=== PATIENT | female | born 1985 | race African-American/Black ===

== ENCOUNTER 2018-10-15 00:41 | Emergency (ER) | payer MEDICAID ==
[~2018-10-15] VITALS: Ht 167.6 cm; Wt 87.0 kg
[2018-10-15 01:19] LABS: CLARITY URINE CLEAR (CLEAR); COLOR URINE YELLOW (YELLOW); KETONES URINE NEGATIVE (NEGATIVE); LEUKOCYTE ESTERASE URINE NEGATIVE (NEGATIVE); NITRITE URINE NEGATIVE (NEGATIVE); OCCULT BLOOD URINE 2+ (NEGATIVE); PROTEIN URINE NEGATIVE (NEGATIVE); SPECIFIC GRAVITY URINE 1.025 (1.005-1.030)
[2018-10-15] MEDS ORDERED: KETOROLAC 60MG/2ML VIAL IM ONE (02:30)
[2018-10-15 02:56] LABS: HEMATOCRIT 35.7 % (36.0-48.0); HEMOGLOBIN 11.6 g/dL (12.0-16.0); MEAN CORPUSCULAR HEMOGLOBIN 26.2 pg (28.0-32.0); MEAN CORPUSCULAR VOLUME 81.1 fL (81.0-99.0); PLATELET 263 x1000/uL (130-400); RED CELL DISTRIBUTION WIDTH 16.3 % (11.6-14.6)
[2018-10-15 03:46] VITALS: BP 98/53
== END 2018-10-15 03:50 | disposition home or self-care (01) ==
LOC: ER 01:46
DX: D25.9 Leiomyoma of uterus, unspecified (principal); F17.200 Nicotine dependence, unspecified, uncomplicated; F12.10 Cannabis abuse, uncomplicated
CPT/HCPCS: 36415; 81003; 81025; 85027; 96372; 99283; J1885; Z7610

== ENCOUNTER 2018-11-18 18:09 | Emergency (ER) | payer MEDICAID ==
[~2018-11-18] VITALS: Ht 167.6 cm; Wt 91.0 kg
[2018-11-18] MEDS ORDERED: SODIUM CHLORIDE 0.9% 500 ML IV ONE (19:00)
[2018-11-18] MEDS ORDERED: KETOROLAC 30MG/ML VIAL IV ONE (19:00)
[2018-11-18 19:16] LABS: CLARITY URINE CLEAR (CLEAR); COLOR URINE YELLOW (YELLOW); KETONES URINE NEGATIVE (NEGATIVE); LEUKOCYTE ESTERASE URINE NEGATIVE (NEGATIVE); NITRITE URINE NEGATIVE (NEGATIVE); OCCULT BLOOD URINE 1+ (NEGATIVE); PROTEIN URINE NEGATIVE (NEGATIVE); SPECIFIC GRAVITY URINE 1.017 (1.005-1.030); UROBILINOGEN URINE 0.2 E.U./dL (0.2-1.0)
[2018-11-18 19:38] LABS: BASOPHILS % 1.3 % (0.0-2.0); EOSINOPHILS % 9.4 % (0.0-5.0); HEMATOCRIT. 36.4 % (36.0-48.0); HEMOGLOBIN. 11.7 g/dL (12.0-16.0); LYMPHOCYTES % 29.8 % (20.0-50.0); MEAN CORPUSCULAR HEMOGLOBIN 26.6 pg (28.0-32.0); MEAN PLATELET VOLUME 8.7 fl (7.4-10.4); MONOCYTES % 9.1 % (2.0-8.0); NEUTROPHILS % 50.4 % (40.0-76.0); PLATELET 324 x1000/uL (130-400); RED BLOOD CELL COUNT 4.39 mill/uL (4.2-5.4); RED CELL DISTRIBUTION WIDTH 15.4 % (11.6-14.6)
[2018-11-18 19:43] LABS: CHLORIDE 107 mEq/L (98-107)
[2018-11-18 19:53] LABS: B-HCG QUANTITATIVE < 1 mIU/mL (<3)
[2018-11-18 21:15] VITALS: BP 125/68
== END 2018-11-18 21:55 | disposition home or self-care (01) ==
LOC: ER 18:09
DX: D25.9 Leiomyoma of uterus, unspecified (principal); N39.0 Urinary tract infection, site not specified; F12.10 Cannabis abuse, uncomplicated; D64.9 Anemia, unspecified
CPT/HCPCS: 36415; 76830; 76856; 80053; 81003; 81025; 84702; 85025; 86850; 86900; 86901; 96374; 99284; J1885; J7040; Z7610

== ENCOUNTER 2019-01-31 16:15 | Emergency (ER) | payer MEDICAID ==
[~2019-01-31] VITALS: Ht 167.6 cm; Wt 100.0 kg
[2019-01-31 17:20] LABS: CLARITY URINE CLEAR (CLEAR); COLOR URINE YELLOW (YELLOW); KETONES URINE NEGATIVE (NEGATIVE); LEUKOCYTE ESTERASE URINE NEGATIVE (NEGATIVE); NITRITE URINE NEGATIVE (NEGATIVE); OCCULT BLOOD URINE NEGATIVE (NEGATIVE); PROTEIN URINE NEGATIVE (NEGATIVE); SPECIFIC GRAVITY URINE 1.015 (1.005-1.030); UROBILINOGEN URINE 0.2 E.U./dL (0.2-1.0)
[2019-01-31] MEDS ORDERED: MORPHINE SULFATE 4 MG/ML CPJ (NOT FOR IM USE) IV STA (19:19)
[2019-01-31] MEDS ORDERED: ONDANSETRON HCL 4MG/2ML INJ IV STA (19:19)
[2019-01-31] MEDS ORDERED: SODIUM CHLORIDE 0.9% 1,000 ML IV ONE (19:19)
[2019-01-31 20:06] LABS: BASOPHILS % 1.5 % (0.0-2.0); EOSINOPHILS % 3.8 % (0.0-5.0); HEMATOCRIT. 26.6 % (36.0-48.0); HEMOGLOBIN. 8.4 g/dL (12.0-16.0); LYMPHOCYTES % 20.4 % (20.0-50.0); MEAN CORPUSCULAR HEMOGLOBIN 24.3 pg (28.0-32.0); MEAN CORPUSCULAR VOLUME 76.7 fL (81.0-99.0); MONOCYTES % 9.8 % (2.0-8.0); NEUTROPHILS % 64.5 % (40.0-76.0); PLATELET 620 x1000/uL (130-400); RED BLOOD CELL COUNT 3.47 mill/uL (4.2-5.4); RED CELL DISTRIBUTION WIDTH 16.9 % (11.6-14.6)
[2019-01-31 20:07] LABS: CHLORIDE 104 mEq/L (98-107)
[2019-01-31 20:08] LABS: PROTHROMBIN TIME 10.2 sec (9.6-11.0)
[2019-01-31] MEDS ORDERED: IOHEXOL-300 100 ML BOTTLE ONE (21:04)
[2019-01-31 23:10] VITALS: BP 118/69
== END 2019-01-31 23:06 | disposition home or self-care (01) ==
LOC: ER 16:15
DX: N99.821 Postprocedural hemorrhage of a genitourinary system organ or structure following other procedure (principal); D64.9 Anemia, unspecified; Z98.890 Other specified postprocedural states
CPT/HCPCS: 36415; 74177; 80053; 81003; 81025; 83605; 85025; 85610; 86850; 86900; 86901; 96374; 96375; 99284; J2270; J2405; J7030; Q9967; Z7610

== ENCOUNTER 2020-05-18 08:13 | Emergency (ER) | payer MEDICAID ==
[~2020-05-18] VITALS: Ht 170.2 cm; Wt 100.0 kg
[2020-05-18] MEDS ORDERED: ONDANSETRON HCL 4MG/2ML INJ IV STA (09:28)
[2020-05-18] MEDS ORDERED: DIATR MEGLU/DIATRIZOATE SOLN 30ML PO ONE (09:30)
[2020-05-18] MEDS ORDERED: SODIUM CHLORIDE 0.9% 1,000 ML IV ONE (09:30)
[2020-05-18] MEDS ORDERED: DIATR MEGLU/DIATRIZOATE SOLN 30ML ONE (10:27)
[2020-05-18 10:35] LABS: BASOPHILS % 1.1 % (0.0-2.0); EOSINOPHILS % 2.4 % (0.0-5.0); HEMATOCRIT. 44.8 % (36.0-48.0); HEMOGLOBIN. 15.2 g/dL (12.0-16.0); LYMPHOCYTES % 18.6 % (20.0-50.0); MEAN CORPUSCULAR HEMOGLOBIN 27.7 pg (28.0-32.0); MEAN CORPUSCULAR VOLUME 81.9 fL (81.0-99.0); MEAN PLATELET VOLUME 9.5 fl (7.4-10.4); MONOCYTES % 8.7 % (2.0-8.0); NEUTROPHILS % 69.2 % (40.0-76.0); PLATELET 340 x1000/uL (130-400); RED BLOOD CELL COUNT 5.47 mill/uL (4.2-5.4); RED CELL DISTRIBUTION WIDTH 13.8 % (11.6-14.6)
[2020-05-18 10:43] LABS: INR 1.1; PROTHROMBIN TIME 11.7 sec (9.6-11.0)
[2020-05-18 10:51] LABS: CHLORIDE 104 mEq/L (98-107)
[2020-05-18 10:51] LABS: CLARITY URINE CLOUDY (CLEAR); COLOR URINE DARK YELLOW (YELLOW); KETONES URINE 2+ (NEGATIVE); LEUKOCYTE ESTERASE URINE NEGATIVE (NEGATIVE); NITRITE URINE NEGATIVE (NEGATIVE); OCCULT BLOOD URINE NEGATIVE (NEGATIVE); PH URINE 5.5 (4.5-8.0); PROTEIN URINE 2+ (NEGATIVE); SPECIFIC GRAVITY URINE 1.037 (1.005-1.030)
[2020-05-18 10:58] LABS: HCG SCREEN NEGATIVE
[2020-05-18 11:14] LABS: *AMPHETAMINES SCREEN URINE NEGATIVE (NEGATIVE); *BARBITURATES SCREEN URINE NEGATIVE (NEGATIVE); *BENZODIAZEPINES SCREEN URINE NEGATIVE (NEGATIVE); *COCAINE SCREEN URINE NEGATIVE (NEGATIVE); METHADONE URINE SCREEN NEGATIVE (NEGATIVE); PHENCYCLIDINE URINE SCREEN NEGATIVE (NEGATIVE)
[2020-05-18 11:16] LABS: CANNABINOID URINE SCREEN PRESUMTIVE POSITIVE (NEGATIVE); OPIATES URINE SCREEN PRESUMTIVE POSITIVE (NEGATIVE)
[2020-05-18 11:30] VITALS: BP 126/71
== END 2020-05-18 11:40 | disposition left against medical advice (07) ==
LOC: ER 08:20
DX: R10.13 Epigastric pain (principal); R11.0 Nausea; Z98.84 Bariatric surgery status
CPT/HCPCS: 36415; 71045; 80053; 80305; 81003; 81025; 83690; 84703; 85025; 85610; 86850; 86900; 86901; 93005; 99285; J7030; Q9963; J2405

== ENCOUNTER 2020-10-04 18:27 | Emergency (ER) | payer MEDICAID ==
[~2020-10-04] VITALS: Ht 172.7 cm; Wt 75.0 kg
[2020-10-04] MEDS ORDERED: KETOROLAC 30MG/ML VIAL IV STA (19:27)
[2020-10-04] MEDS ORDERED: SODIUM CHLORIDE 0.9% 1,000 ML IV ONE (19:30)
[2020-10-04 20:05] VITALS: BP 142/103
[2020-10-04 20:31] LABS: CLARITY URINE CLEAR (CLEAR); COLOR URINE YELLOW (YELLOW); KETONES URINE 1+ (NEGATIVE); LEUKOCYTE ESTERASE URINE NEGATIVE (NEGATIVE); NITRITE URINE NEGATIVE (NEGATIVE); OCCULT BLOOD URINE NEGATIVE (NEGATIVE); PROTEIN URINE NEGATIVE (NEGATIVE)
[2020-10-04 20:32] LABS: BASOPHILS % 1.2 % (0.0-2.0); EOSINOPHILS % 0.5 % (0.0-5.0); HEMOGLOBIN. 14.4 g/dL (12.0-16.0); LYMPHOCYTES % 27.2 % (20.0-50.0); MEAN CORPUSCULAR VOLUME 83.3 fL (81.0-99.0); MEAN PLATELET VOLUME 9.6 fl (7.4-10.4); MONOCYTES % 7.8 % (2.0-8.0); NEUTROPHILS % 63.3 % (40.0-76.0); PLATELET 315 x1000/uL (130-400); RED BLOOD CELL COUNT 5.16 mill/uL (4.2-5.4); RED CELL DISTRIBUTION WIDTH 13.2 % (11.6-14.6)
[2020-10-04 20:37] LABS: CHLORIDE 104 mEq/L (98-107)
== END 2020-10-04 23:10 | disposition home or self-care (01) ==
LOC: ER 18:35
DX: R51.9 Headache, unspecified (principal); R03.0 Elevated blood-pressure reading, without diagnosis of hypertension
CPT/HCPCS: 36415; 80053; 81003; 81025; 85025; 96361; 96374; 99283; J1885; J7030

== ENCOUNTER 2021-04-13 15:06 | Emergency (ER) | payer MEDICAID ==
[~2021-04-13] VITALS: Ht 167.6 cm; Wt 76.0 kg
[2021-04-13 15:50] VITALS: BP 111/85
== END 2021-04-13 17:00 | disposition left against medical advice (07) ==
LOC: ER 15:06
DX: Z48.00 Encounter for change or removal of nonsurgical wound dressing (principal)
CPT/HCPCS: 99281

== ENCOUNTER 2022-10-09 18:50 | Emergency (ER) | payer MEDICAID, OTHER ==
[~2022-10-09] VITALS: Ht 167.6 cm; Wt 91.0 kg
[2022-10-09] MEDS ORDERED: KETOROLAC 30MG/ML VIAL IM ONE (22:00)
[2022-10-09] MEDS ORDERED: NAP5EC PO (22:26)
[2022-10-09 23:26] VITALS: BP 135/78
== END 2022-10-09 23:28 | disposition home or self-care (01) ==
LOC: ER 18:50
DX: S69.81XA Other specified injuries of right wrist, hand and finger(s), initial encounter (principal); W22.8XXA Striking against or struck by other objects, initial encounter; Y93.89 Activity, other specified; Y92.89 Other specified places as the place of occurrence of the external cause
CPT/HCPCS: 29130; 73140; 96372; 99283; J1885